=== PATIENT | female | born 1955 | race Caucasian/White ===

== ENCOUNTER 2019-06-01 | Emergency (ER) | payer MEDICARE, MEDICAID ==
[~2019-06-01] MED LIST: ACTOS15 MG PO; ALPRAZOLAM0.5 MG PO; CALCI17 PO; COREG6.25 MG PO; D 2000 PO; FREESTYLELITE100 XX; JANTOVEN5 MG PO; LIPITOR40 MG PO; MAGNESIUM296 ML/BTL PO; METFORMIN500 M1 PO; MIRALAX3350 N1 PO; TRILIPIX135 MG PO; XANAX XR0.5 MG OR
[2019-06-01 12:38] LABS: IMMATURE GRANULOCYTES 0.8 % (0.0-5.0); MEAN CORPUSCULAR HGB 23.2 pG CALC (26.0-32.0); MEAN CORPUSCULAR HGB CONC 28.1 g/L CALC (32.0-36.0); NEUT# 8.55 thou/uL (2.00-7.15); RED BLOOD COUNT 2.84 mill/uL (4.20-5.60)
[2019-06-01 12:51] LABS: CREATININE 1.7 mg/dL (0.5-1.0); POTASSIUM 5.6 mmol/l (3.5-5.1)
[2019-06-01] MEDS ORDERED: PEPCID40 MG PO (13:00)
[2019-06-01] MEDS ORDERED: LISINOPRIL2.5 MG PO (13:01)
[2019-06-01] MEDS ORDERED: PLAVIX75 MG PO (13:01)
[2019-06-01 13:05] LABS: HEMATOCRIT 23.5 % (37.0-47.0); HEMOGLOBIN 6.6 g/dl (12.0-16.0); MEAN CELL VOLUME 82.7 fL CALC (80.0-100.0)
[2019-06-01 13:25] LABS: INTERNATIONAL NORMALIZED RATIO 3.9 RATIO (0.7-1.3); PROTHROMBIN TIME 38.3 SECONDS (9.0-12.5)
[2019-06-01 15:00] VITALS: BP 88/54
[2019-06-01 15:19] VITALS: BP 86/47
[2019-06-01 15:33] VITALS: BP 88/63
== END 2019-06-01 16:00 | disposition short-term general hospital (02) ==
PROVIDERS: Family Medicine
PROC: 30233K1 Transfusion of Nonautologous Frozen Plasma into Peripheral Vein, Percutaneous Approach (ICD-10-PCS; principal; 2019-06-01)
PROC: 30233K1 Transfusion of Nonautologous Frozen Plasma into Peripheral Vein, Percutaneous Approach (ICD-10-PCS; 2019-06-01)
PROC: 30233N1 Transfusion of Nonautologous Red Blood Cells into Peripheral Vein, Percutaneous Approach (ICD-10-PCS; 2019-06-01)
DX: I21.4 Non-ST elevation (NSTEMI) myocardial infarction (principal); K92.1 Melena; D64.9 Anemia, unspecified; E87.5 Hyperkalemia; E87.1 Hypo-osmolality and hyponatremia; R79.1 Abnormal coagulation profile; T45.515A Adverse effect of anticoagulants, initial encounter; I50.9 Heart failure, unspecified; Z79.01 Long term (current) use of anticoagulants
CPT/HCPCS: P9016